=== PATIENT | female | born 1985 | race Caucasian/White ===

== ENCOUNTER 2021-05-25 21:42 | Inpatient (IN) | payer MEDICAID ==
[~2021-05-25] VITALS: Ht 160 cm; Wt 137.0 kg
[2021-05-25] MEDS ORDERED: SODIUM CHLORIDE 0.9% 1000ML BAG (SEPSIS BOLUS) IV ONE (22:45)
[2021-05-25] MEDS ORDERED: VANCOMYCIN 1 G PREMIX 200 ML IV ONE (22:45)
[2021-05-25] MEDS ORDERED: CEFTRIAXONE 1 G PREMIX 50 ML IV ONE (22:45)
[2021-05-25 23:08] LABS: BASOPHILS % 0.2 % (0.0-2.0); HEMATOCRIT. 36.8 % (36.0-48.0); HEMOGLOBIN. 11.2 g/dL (12.0-16.0); LYMPHOCYTES % 8.1 % (20.0-50.0); MEAN CORPUSCULAR HEMOGLOBIN 20.9 pg (28.0-32.0); MEAN CORPUSCULAR VOLUME 68.6 fL (81.0-99.0); MEAN PLATELET VOLUME 6.9 fl (7.4-10.4); NEUTROPHILS % 88.7 % (40.0-76.0); PLATELET 432 x1000/uL (130-400); RED BLOOD CELL COUNT 5.35 mill/uL (4.2-5.4); RED CELL DISTRIBUTION WIDTH 20.3 % (11.6-14.6)
[2021-05-25 23:13] LABS: CHLORIDE 103 mEq/L (98-107)
[2021-05-25 23:23] LABS: PLATELET ESTIMATE INCREASED
[2021-05-25] MEDS ORDERED: KETOROLAC 30MG/ML VIAL IV ONE (23:30)
[2021-05-26] MEDS ORDERED: GUAIFENESIN 200MG/10ML SUGAR FREE UDC PO PRN (13:15)
[2021-05-26] MEDS ORDERED: SODIUM CHLORIDE 0.45% 1,000 ML IV SCH (13:15)
[2021-05-26] MEDS ORDERED: DIPHENHYDRAMINE 50MG/ML VIAL IV PRN (13:15)
[2021-05-26] MEDS ORDERED: ACETAMINOPHEN 325MG TABLET PO PRN (13:15)
[2021-05-26] MEDS ORDERED: MAGNESIUM/ALUMINUM HYDROXIDE/SIMETHICONE 30ML UDC PO PRN (13:15)
[2021-05-26] MEDS ORDERED: IPRATROPIUM/ALBUTEROL 0.5-3(2.5)MG/3ML NEB HHN PRN (13:15)
[2021-05-26] MEDS ORDERED: CLINDAMYCIN 600 MG in DEXTROSE 5% WATER 50 ML IV SCH (13:15)
[2021-05-26] MEDS ORDERED: HYDRALAZINE 20MG/ML VIAL IV PRN (13:15)
[2021-05-26] MEDS ORDERED: ONDANSETRON HCL 4MG/2ML INJ IV PRN (13:15)
[2021-05-26] MEDS ORDERED: HYDROCODONE/ACETAMINOPHEN 5/325MG TABLET PO PRN (13:15)
[2021-05-26] MEDS ORDERED: DOCUSATE SODIUM 100MG CAPSULE PO PRN (13:15)
[2021-05-26] MEDS ORDERED: LORAZEPAM 2MG/ML CPJ IV PRN (13:15)
[2021-05-26] MEDS ORDERED: CLONIDINE 0.1MG TABLET PO PRN (13:15)
[2021-05-26] MEDS ORDERED: MORPHINE SULFATE 2 MG/ML CPJ (NOT FOR IM USE) IV PRN (13:15)
[2021-05-26] MEDS ORDERED: SODIUM CHLORIDE 0.9% INJ 3ML FLUSH IVF SCH (14:00)
[2021-05-26] MEDS ORDERED: CLINDAMYCIN 600MG PREMIX 50 ML IV SCH (14:30)
[2021-05-26] MEDS ORDERED: ENOXAPARIN 40MG/0.4ML SYR SUBCUT SCH (15:00)
[2021-05-26 16:36] VITALS: BP 119/77
[2021-05-26] MEDS ORDERED: NALOXONE HCL 0.4MG/ML VIAL IV PRN (16:45)
== END 2021-05-26 16:47 | disposition left against medical advice (07) | DRG 720 ==
LOC: ER 21:42 → MICUSO 05-26 00:02
PROVIDERS: ADMIT Internal Medicine; ATTEND Internal Medicine
DX: A41.9 Sepsis, unspecified organism (principal); R64 Cachexia; L03.116 Cellulitis of left lower limb; Z53.29 Procedure and treatment not carried out because of patient's decision for other reasons; Z79.899 Other long term (current) drug therapy; Z88.0 Allergy status to penicillin
CPT/HCPCS: 36415; 71045; 80053; 83605; 83880; 84145; 84484; 85025; 93005; 99291; J0696; J1885; J3370; J3490; J7030

== ENCOUNTER 2021-09-24 19:08 | Inpatient (IN) | payer MEDICAID ==
[~2021-09-24] VITALS: Ht 160 cm; Wt 103.0 kg
[2021-09-24] MEDS ORDERED: KETOROLAC 30MG/ML VIAL IV NR (19:43)
[2021-09-24] MEDS ORDERED: ACETAMINOPHEN 325MG TABLET PO NR (19:43)
[2021-09-24] MEDS ORDERED: SODIUM CHLORIDE 0.9% 1000ML BAG (SEPSIS BOLUS) IV NR (19:45)
[2021-09-24] MEDS ORDERED: CEFTRIAXONE 1 G PREMIX 50 ML IV NR (20:15)
[2021-09-24 20:46] LABS: HEMATOCRIT. 38.2 % (36.0-48.0); HEMOGLOBIN. 12.4 g/dL (12.0-16.0); MEAN CORPUSCULAR HEMOGLOBIN 25.1 pg (28.0-32.0); MEAN PLATELET VOLUME 6.8 fl (7.4-10.4); PLATELET 442 x1000/uL (130-400); RED BLOOD CELL COUNT 4.95 mill/uL (4.2-5.4); RED CELL DISTRIBUTION WIDTH 16.7 % (11.6-14.6)
[2021-09-24] MEDS ORDERED: VANCOMYCIN 1G PREMIX 200 ML IV NR (21:00)
[2021-09-24 21:02] LABS: CHLORIDE 105 mEq/L (98-107)
[2021-09-24 21:25] LABS: PLATELET ESTIMATE INCREASED
[2021-09-24] MEDS ORDERED: VANCOMYCIN 1,000 MG in DEXT 5% WATER 250 ML IV SCH (23:00)
[2021-09-24 23:01] LABS: CLARITY URINE CLOUDY (CLEAR); COLOR URINE DARK YELLOW (YELLOW); KETONES URINE TRACE (NEGATIVE); LEUKOCYTE ESTERASE URINE 1+ (NEGATIVE); NITRITE URINE NEGATIVE (NEGATIVE); OCCULT BLOOD URINE 2+ (NEGATIVE); PROTEIN URINE 1+ (NEGATIVE); SPECIFIC GRAVITY URINE 1.033 (1.005-1.030)
[2021-09-25] MEDS ORDERED: ENOXAPARIN 40MG/0.4ML SYR SUBCUT SCH (04:00)
[2021-09-25] MEDS ORDERED: ONDANSETRON HCL 4MG/2ML INJ IV PRN (04:00)
[2021-09-25] MEDS ORDERED: HYDROCODONE/ACETAMINOPHEN 5/325MG TABLET PO PRN (04:00)
[2021-09-25] MEDS ORDERED: ACETAMINOPHEN 325MG TABLET PO PRN (04:00)
[2021-09-25] MEDS ORDERED: CLONIDINE 0.1MG TABLET PO PRN (04:00)
[2021-09-25] MEDS ORDERED: MAGNESIUM/ALUMINUM HYDROXIDE/SIMETHICONE 30ML UDC PO PRN (04:00)
[2021-09-25] MEDS ORDERED: GUAIFENESIN 200MG/10ML SUGAR FREE UDC PO PRN (04:00)
[2021-09-25] MEDS: AMLODIPINE 10MG TABLET PO SCH ×2 (04:00→09:00)
[2021-09-25] MEDS ORDERED: DOCUSATE SODIUM 100MG CAPSULE PO PRN (04:00)
[2021-09-25] MEDS ORDERED: SODIUM CHLORIDE 0.45% 1,000 ML IV SCH (04:00)
[2021-09-25] MEDS ORDERED: NALOXONE HCL 0.4 MG/ML 1ML VIAL IV PRN (04:15)
[2021-09-25] MEDS ORDERED: LEVOFLOXACIN 500MG PREMIX 100 ML IV SCH (05:00)
[2021-09-25] MEDS ORDERED: VANCOMYCIN 1,000 MG in DEXT 5% WATER 250 ML IV SCH (05:00)
[2021-09-25] MEDS ORDERED: ENOXAPARIN 30MG/0.3ML SYR SUBCUT SCH (09:00)
[2021-09-25 10:00] VITALS: BP 110/72
[2021-09-25 10:30] VITALS: BP 110/72
[2021-09-25 12:39] VITALS: BP 114/79
[2021-09-25] MEDS ORDERED: VANCOMYCIN 1250MG in DEXTROSE 5% WATER 250ML IV SCH ×4 (14:00)
[2021-09-26] MEDS ORDERED: LEVOFLOXACIN 500MG PREMIX 100 ML IV SCH (06:00)
== END 2021-09-25 13:50 | disposition home or self-care (01) | DRG 383 ==
LOC: ER 19:08 → UNDOADMIN 23:59 → MICUSO 23:59 → 7EST 09-25 10:28
PROVIDERS: ADMIT Hospitalist; ATTEND Hospitalist
DX: L03.116 Cellulitis of left lower limb (principal); R65.10 Systemic inflammatory response syndrome (SIRS) of non-infectious origin without acute organ dysfunction; I10 Essential (primary) hypertension; N39.0 Urinary tract infection, site not specified; Z88.0 Allergy status to penicillin
CPT/HCPCS: 36415; 71045; 80053; 81003; 83605; 84145; 84484; 85025; 86140; 99285; J0696; J1885; J1956; J3370; J7030; J7060

== ENCOUNTER 2021-09-29 21:29 | Emergency (ER) | payer MEDICAID ==
[~2021-09-29] VITALS: Ht 157.5 cm; Wt 107.5 kg
[2021-09-29 22:53] LABS: BASOPHILS % 0.7 % (0.0-2.0); HEMATOCRIT. 37.8 % (36.0-48.0); HEMOGLOBIN. 12.3 g/dL (12.0-16.0); LYMPHOCYTES % 33.4 % (20.0-50.0); MEAN CORPUSCULAR HEMOGLOBIN 25.3 pg (28.0-32.0); MEAN CORPUSCULAR VOLUME 77.3 fL (81.0-99.0); MEAN PLATELET VOLUME 6.7 fl (7.4-10.4); MONOCYTES % 7.3 % (2.0-8.0); NEUTROPHILS % 55.6 % (40.0-76.0); PLATELET 509 x1000/uL (130-400); RED BLOOD CELL COUNT 4.89 mill/uL (4.2-5.4)
[2021-09-29 22:56] LABS: CHLORIDE 108 mEq/L (98-107)
[2021-09-30] MEDS ORDERED: SULF1TAB48 MT (01:44)
[2021-09-30] MEDS ORDERED: DOXY100C5 MT (01:44)
[2021-09-30 02:04] VITALS: BP 118/86
== END 2021-09-30 02:04 | disposition home or self-care (01) ==
LOC: ER 22:09
DX: L03.116 Cellulitis of left lower limb (principal)
CPT/HCPCS: 36415; 80048; 81025; 83605; 85025; 93971; 99284

== ENCOUNTER 2023-04-22 20:49 | Emergency (ER) | payer MEDICAID ==
[~2023-04-22] VITALS: Ht 160 cm; Wt 90.0 kg
[~2023-04-22 20:49] MED LIST: CLIN-194 MT; DOXY100C5 MT; IBUP-2029 MT; SULF1TAB48 MT
[2023-04-22 21:00] VITALS: BP 138/91; PULSE 89; RESP 20; TEMP 98.4; O2SAT 98
[2023-04-22 22:59] LABS: CLARITY URINE CLOUDY (CLEAR); COLOR URINE YELLOW (YELLOW); GLUCOSE URINE NEGATIVE (NEGATIVE); KETONES URINE TRACE (NEGATIVE); LEUKOCYTE ESTERASE URINE NEGATIVE (NEGATIVE); NITRITE URINE NEGATIVE (NEGATIVE); OCCULT BLOOD URINE 3+ (NEGATIVE); PH URINE 5.5 (4.5-8.0); PROTEIN URINE TRACE (NEGATIVE); SPECIFIC GRAVITY URINE 1.025 (1.005-1.030); UROBILINOGEN URINE 0.2 E.U./dL (0.2-1.0)
[2023-04-22 23:02] LABS: BACTERIA URINE NONE SEEN; RBC URINE TNTC /hpf (0-2); YEAST URINE NONE SEEN
[2023-04-22 23:12] LABS: SQUAMOUS EPITHELIAL CELL URINE RARE /lpf (RARE/1+)
== END 2023-04-22 23:26 | disposition left against medical advice (07) ==
LOC: ER 20:49
DX: R10.9 Unspecified abdominal pain (principal); N80.9 Endometriosis, unspecified; Z88.0 Allergy status to penicillin
CPT/HCPCS: 76830; 76856; 81003; 81025; 99284

== ENCOUNTER 2025-02-24 19:37 | Emergency (ER) | payer MEDICAID ==
[~2025-02-24] VITALS: Ht 160 cm; Wt 90.3 kg
[~2025-02-24 19:37] MED LIST changes: +IBUP-1455 MT; -IBUP-2029 MT
[2025-02-24 19:41] VITALS: O2SAT 99
[2025-02-24] MEDS ORDERED: IBUPROFEN 600MG TABLET PO ONE (21:15)
[2025-02-24 21:32] VITALS: BP 164/104; PULSE 88; RESP 16; TEMP 36.9; O2SAT 99
== END 2025-02-24 21:34 | disposition home or self-care (01) ==
LOC: ER 19:54
DX: N76.4 Abscess of vulva (principal); Z88.0 Allergy status to penicillin; Z79.899 Other long term (current) drug therapy
CPT/HCPCS: 99284